=== PATIENT | female | born 2000 | race Caucasian/White ===

== ENCOUNTER 2023-10-31 13:55 | Emergency (ER) | payer BC ==
[~2023-10-31] VITALS: Ht 162.6 cm; Wt 50.8 kg
[2023-10-31 14:20] VITALS: O2SAT 98
[2023-10-31 19:53] VITALS: BP 116/82; PULSE 89; RESP 19; TEMP 98.4
== END 2023-10-31 19:57 | disposition home or self-care (01) ==
LOC: ER 14:42
DX: R07.81 Pleurodynia (principal); J45.909 Unspecified asthma, uncomplicated
CPT/HCPCS: 99281